=== PATIENT | female | born 1965 | race Caucasian/White ===

== ENCOUNTER 2016-12-30 17:32 | Emergency (ER) | payer OTHER ==
[~2016-12-30] VITALS: Ht 160 cm; Wt 78.7 kg
[~2016-12-30 17:32] MED LIST: AMITRIPTYLINE H25 MG PO; ASPIRIN325 MG PO; BACLOFEN10 MG PO; CLONAZEPAM0.5 MG PO; LEXAPRO10 MG PO; LORTAB 5-325 M1 EACH PO; METOPROLOL TART25 MG PO; OXYBUTYNIN CHLOR5 M1 PO; PRAVASTATIN SOD20 MG PO; SPIRONOLACTONE50 MG PO; SYNTHROID25 MCG PO; TOPAMAX100 MG PO; VENLAFAXINE HC150 MG PO; VENLAFAXINE HCL75 M3 PO; VITAMIN D5000 UNI1 PO
[2016-12-30 17:49] VITALS: BP 109/66
[2016-12-30] MEDS ORDERED: FLEXERIL10 MG PO (19:42)
[2016-12-30] MEDS ORDERED: NORCO 5/3251 TABLET PO (19:42)
== END 2016-12-30 20:07 | disposition home or self-care (01) ==
LOC: EME 17:32
DX: S20.20XA Contusion of thorax, unspecified, initial encounter (principal); W18.11XA Fall from or off toilet without subsequent striking against object, initial encounter; Y92.59 Other trade areas as the place of occurrence of the external cause; I10 Essential (primary) hypertension; E78.5 Hyperlipidemia, unspecified; Z86.73 Personal history of transient ischemic attack (TIA), and cerebral infarction without residual deficits; Z98.2 Presence of cerebrospinal fluid drainage device; Z87.891 Personal history of nicotine dependence
CPT/HCPCS: 71101; 99281; 99284

== ENCOUNTER 2017-03-15 18:36 | Emergency (ER) | payer OTHER ==
[~2017-03-15] VITALS: Ht 160 cm; Wt 75.5 kg
[~2017-03-15 18:36] MED LIST changes: +FLEXERIL10 MG PO; +NORCO 5/3251 TABLET PO
[2017-03-15 19:54] VITALS: BP 114/57
== END 2017-03-15 19:56 | disposition home or self-care (01) ==
LOC: EME 18:36
DX: S60.511A Abrasion of right hand, initial encounter (principal); W06.XXXA Fall from bed, initial encounter; Z86.73 Personal history of transient ischemic attack (TIA), and cerebral infarction without residual deficits; I10 Essential (primary) hypertension; R56.9 Unspecified convulsions; Z87.891 Personal history of nicotine dependence
CPT/HCPCS: 99281; 99284

== ENCOUNTER 2018-01-24 18:43 | Emergency (ER) | payer OTHER ==
[~2018-01-24] VITALS: Ht 160 cm; Wt 79.1 kg
[2018-01-24] MEDS ORDERED: NORCO 5/3251 TABLET PO (23:00)
[2018-01-24 23:06] VITALS: BP 121/72
== END 2018-01-24 23:06 | disposition home or self-care (01) ==
LOC: EME 18:43
DX: R51 Headache (principal); I69.354 Hemiplegia and hemiparesis following cerebral infarction affecting left non-dominant side; Z98.2 Presence of cerebrospinal fluid drainage device; F41.9 Anxiety disorder, unspecified; I10 Essential (primary) hypertension; F32.9 Major depressive disorder, single episode, unspecified
CPT/HCPCS: 70250; 70450; 71045; 72040; 74018; 99281; 99284